=== PATIENT | male | born 1945 | race Two or more races ===

== ENCOUNTER 2018-12-09 07:39 | Outpatient (CLI) | payer OTHER | END 2018-12-09 07:48 | disposition home or self-care (01) | LOC: RAD 07:39 | DX: R53.81 Other malaise (principal); J20.8 Acute bronchitis due to other specified organisms; R05 Cough ==

== ENCOUNTER 2019-06-02 07:45 | Outpatient (CLI) | payer OTHER | END 2019-06-02 07:47 | disposition home or self-care (01) | LOC: TOM 07:45 | DX: I10 Essential (primary) hypertension (principal); R05 Cough ==

== ENCOUNTER → 2019-09-29 | Outpatient (CLI) | payer OTHER | END | disposition home or self-care (01) | LOC: SONOGRAMA 09:22 | DX: I10 Essential (primary) hypertension (principal) ==

== ENCOUNTER 2019-10-20 04:55 | Day surgery (SDC) | payer OTHER ==
[~2019-10-20 04:55] MED LIST: COZAAR50 MG PO
== END 2019-10-20 09:51 | disposition home or self-care (01) ==
LOC: CIR.AMB 04:55
DX: L72.0 Epidermal cyst (principal)

== ENCOUNTER 2020-05-16 08:04 | Outpatient (CLI) | payer OTHER | END 2020-05-16 08:06 | disposition home or self-care (01) | LOC: SONOGRAMA 08:04 | PROVIDERS: ATTEND Internal Medicine Gastroenterology | DX: R10.84 Generalized abdominal pain (principal) ==

== ENCOUNTER → 2020-10-06 08:46 | Outpatient (CLI) | payer OTHER | END | disposition home or self-care (01) | LOC: LAB 08:46 | PROVIDERS: ATTEND Radiology Diagnostic Radiology | DX: N20.0 Calculus of kidney (principal) ==

== ENCOUNTER 2020-10-10 07:59 | Outpatient (CLI) | payer OTHER | END 2020-10-10 08:22 | disposition home or self-care (01) | LOC: TOM 07:59 | PROVIDERS: ATTEND Urology | DX: K57.90 Diverticulosis of intestine, part unspecified, without perforation or abscess without bleeding (principal); R31.0 Gross hematuria ==

== ENCOUNTER → 2020-12-10 07:35 | Outpatient (CLI) | payer OTHER | END | disposition home or self-care (01) | LOC: RAD 07:35 | PROVIDERS: ATTEND General Practice | DX: M79.672 Pain in left foot (principal); R22.9 Localized swelling, mass and lump, unspecified ==

== ENCOUNTER 2021-08-28 11:07 | Inpatient (IN) | payer OTHER ==
[~2021-08-28] VITALS: Ht 162.6 cm; Wt 72.6 kg
--- NOTE | 2021-08-28 11:47 | NUR ---
SE RECIBE PTE ALERTA Y ORIENTADO X3,REFIERE TENER SANGRADO EN LA ORINA INTERMITENTE ,FUE REFERIDO POR ANEMIA POR LA DRA.SARA ZAMBRANO.
== END 2021-09-01 09:31 | disposition home or self-care (01) | DRG 700 ==
LOC: ER 11:07 → MEDJ 08-29 01:19
PROVIDERS: Urology; ADMIT Specialist/Technologist, Other Nephrology; ATTEND Specialist/Technologist, Other Nephrology
PROC: 30233N1 Transfusion of Nonautologous Red Blood Cells into Peripheral Vein, Percutaneous Approach (ICD-10-PCS; 2021-08-28)
PROC: 0TCB8ZZ Extirpation of Matter from Bladder, Via Natural or Artificial Opening Endoscopic (ICD-10-PCS; 2021-08-30)
PROC: 0T7D8ZZ Dilation of Urethra, Via Natural or Artificial Opening Endoscopic (ICD-10-PCS; principal; 2021-08-30 14:00)
DX: N30.41 Irradiation cystitis with hematuria (principal); R31.0 Gross hematuria; D64.9 Anemia, unspecified; I10 Essential (primary) hypertension; Z20.822 Contact with and (suspected) exposure to COVID-19; N32.89 Other specified disorders of bladder

== ENCOUNTER 2023-03-21 07:31 | Outpatient (CLI) | payer OTHER | END 2023-03-21 07:33 | disposition home or self-care (01) | LOC: NUCLEAR 07:31 | PROVIDERS: ATTEND Internal Medicine Pulmonary Disease | DX: R91.1 Solitary pulmonary nodule (principal); Z77.22 Contact with and (suspected) exposure to environmental tobacco smoke (acute) (chronic) | CPT/HCPCS: 78816; A9552 ==

== ENCOUNTER 2025-02-02 05:13 | Emergency (ER) | payer OTHER ==
[~2025-02-02] VITALS: Ht 177.8 cm; Wt 68.0 kg
[2025-02-02] MEDS ORDERED: 0.9 % SODIUM CHLORIDE 1,000 ML IV STA (05:42)
[2025-02-02 07:15] LABS: INR 1.13; PARTIAL THROMBOPLASTIN TIME 23.6 SECONDS (22.0-34.0); PROTHROMBIN TIME 12.2 SECONDS (9.0-11.5)
[2025-02-02 07:21] LABS: ALBUMIN 3.5 gm/dL (3.4-5.0); BILIRUBIN TOTAL 0.48 mg/dL (0.3-1.2); CALCIUM 8.5 mg/dL (8.5-10.1); CREATININE SERUM 1.19 mg/dL (0.70-1.30); GFR 59.12; GLOBULINA 3.3 G/DL (2.4-3.5); POTASSIUM 3.57 mEq/L (3.5-5.1); PROSTATIC SPECIFIC ANTIGEN 0.322 NG/ML (0.010-4.00); TOTAL PROTEIN 6.8 gm/dL (6.4-8.2)
[2025-02-02 08:17] LABS: ERYTHROCYTE SEDIMENTATION RATE 7 mm/hr (0-20)
[2025-02-02 08:21] LABS: BASO % 0.3 % (0.1-1.2); EOS % 0.1 % (0.7-7.0); HEMATOCRIT 34.4 % (40.1-51.0); LYMPH % 9.3 % (19.3-53.1); MEAN CORPUSCULAR HEMOGLOBIN 29.3 pg (25.6-32.2); NEUT % 79.9 % (34.0-71.1); PLATELET COUNT 146 K/uL (163-369); RED BLOOD COUNT 3.76 M/uL (4.63-6.08); RED CELL DISTRIBUTION WIDTH 14.6 % (11.6-14.4)
[2025-02-02 08:22] LABS: EOS # 0.01 (0.04-0.54); MONO # 1.18 (0.24-0.82); NEUT # 9.47 (1.56-6.13)
[2025-02-02 09:02] LABS: COVID-19 AG NEGATIVE (NEGATIVE); INFLUENZA A AG NEGATIVE (NEGATIVE)
[2025-02-02] MEDS ORDERED: PROTONIX40 MG PO (09:40)
[2025-02-02] MEDS ORDERED: METRONIDAZOLE500 MG PO (09:40)
[2025-02-02] MEDS ORDERED: CIPRO500 MG PO (09:40)
[2025-02-02] MEDS ORDERED: PROBIOTIC1 EAC2 PO (09:40)
[2025-02-02] MEDS ORDERED: LEVSIN/SL0.125 MG SL (09:40)
== END 2025-02-02 09:55 | disposition home or self-care (01) ==
LOC: ER 05:13
DX: K62.5 Hemorrhage of anus and rectum (principal); Z20.822 Contact with and (suspected) exposure to COVID-19
CPT/HCPCS: 36415; 74176; 96365; 96366; 99284; J7030

== ENCOUNTER 2025-02-06 06:59 | Inpatient (IN) | payer OTHER ==
[2025-02-06] VITALS (9 sets, daily range): BP systolic 126–163; BP diastolic 65–76; O2SAT 98–100
[~2025-02-06] VITALS: Ht 175.3 cm; Wt 68.0 kg
[~2025-02-06 06:59] MED LIST changes: +CIPRO500 MG PO; +LEVSIN/SL0.125 MG SL; +METRONIDAZOLE500 MG PO; +PROBIOTIC1 EAC2 PO; +PROTONIX40 MG PO
[2025-02-06] MEDS ORDERED: DILTIAZEM HCL 25 MG/5 ML VIAL IV ONE (07:28)
[2025-02-06] MEDS ORDERED: DILTIAZEM HCL 25 MG/5 ML VIAL IV STA (07:34)
[2025-02-06] MEDS ORDERED: 0.9 % SODIUM CHLORIDE 1,000 ML IV STA (07:34)
[2025-02-06] MEDS ORDERED: DILTIAZEM HCL 50 MG/10 ML VIAL IV STA (07:51)
[2025-02-06 08:12] LABS: ABG PH 7.482 (7.35-7.45); ABG PO2 80.3 mmHg (80-100); ABG pCO2 32.8 mmHg (35-45); BASE EXCESS 1.2 mmol/l; SaO2 96.7 %; allen test SATISFACTORY; mode ROOM AIR; o2 21 %; puncture site RADIAL RIGHT
[2025-02-06 08:36] LABS: BASO % 0.2 % (0.1-1.2); EOS # 0.01 (0.04-0.54); EOS % 0.2 % (0.7-7.0); HEMATOCRIT 30.6 % (40.1-51.0); HEMOGLOBIN 10.1 g/dL (13.7-17.5); LYMPH # 0.76 (1.18-3.74); LYMPH % 13.6 % (19.3-53.1); MEAN CORPUSCULAR HEMOGLOBIN 29.7 pg (25.6-32.2); MONO # 0.64 (0.24-0.82); MONO % 11.5 % (4.7-12.5); NEUT # 4.14 (1.56-6.13); NEUT % 74.1 % (34.0-71.1); PLATELET COUNT 150 K/uL (163-369); RED CELL DISTRIBUTION WIDTH 14.8 % (11.6-14.4)
[2025-02-06 09:03] LABS: ALBUMIN 3.4 gm/dL (3.4-5.0); BILIRUBIN TOTAL 0.94 mg/dL (0.3-1.2); CREATININE SERUM 1.25 mg/dL (0.70-1.30); GFR 55.86; GLOBULINA 3.6 G/DL (2.4-3.5); POTASSIUM 3.69 mEq/L (3.5-5.1)
[2025-02-06] MEDS ORDERED: DILTIAZEM HCL 125 MG in 0.9 % SODIUM CHLORIDE 125 ML IV SCH (12:30)
[2025-02-06] MEDS ORDERED: ATORVASTATIN CALCIUM 40 MG TABLET PO SCH (18:23)
[2025-02-06] MEDS ORDERED: 0.9 % SODIUM CHLORIDE 1,000 ML IV SCH (18:30)
[2025-02-06] MEDS ORDERED: ACETAMINOPHEN 500 MG GEL..CAP PO PRN (18:30)
[2025-02-06 19:30] LABS: D DIMER 1.55 MG/L; INR 1.22; PARTIAL THROMBOPLASTIN TIME 31.3 SECONDS (22.0-34.0); PROTHROMBIN TIME 13.1 SECONDS (9.0-11.5)
[2025-02-06 19:58] LABS: MAGNESIUM 1.7 mg/dL (1.8-2.4); PHOSPHOROUS 2.4 mg/dL (2.5-4.9)
[2025-02-06 20:21] LABS: COVID-19 AG NEGATIVE (NEGATIVE)
[2025-02-07] VITALS (15 sets, daily range): BP systolic 131–169; BP diastolic 68–87; O2SAT 94–100
[2025-02-07 04:00] LABS: ob POSITIVE (NEGATIVE)
[2025-02-07] MEDS ORDERED: AMIODARONE HCL 900 MG in DEXTROSE 5 % IN WATER 500 ML IV SCH (08:15)
[2025-02-07 08:32] LABS: CHOL HDL RATIO 2.1 (0-5.0); TSH 0.629 uIU/mL (0.358-3.74)
[2025-02-07 08:40] LABS: BASO % 1.1 % (0.1-1.2); EOS # 0.03 (0.04-0.54); EOS % 0.8 % (0.7-7.0); HEMATOCRIT 27.3 % (40.1-51.0); LYMPH # 0.75 (1.18-3.74); LYMPH % 19.8 % (19.3-53.1); MEAN CORPUSCULAR HEMOGLOBIN 29.9 pg (25.6-32.2); MONO # 0.51 (0.24-0.82); NEUT # 2.44 (1.56-6.13); NEUT % 64.5 % (34.0-71.1); PLATELET COUNT 156 K/uL (163-369); RED BLOOD COUNT 2.98 M/uL (4.63-6.08)
[2025-02-07 08:57] LABS: MONO % 13.5 % (4.7-12.5)
[2025-02-07] MEDS ORDERED: FAMOTIDINE/PF 20 MG in 0.9 % SODIUM CHLORIDE 8 ML IV PUSH SCH (09:00)
[2025-02-07] MEDS ORDERED: LOSARTAN POTASSIUM 25 MG TABLET PO SCH (09:00)
[2025-02-07] MEDS ORDERED: METOPROLOL SUCCINATE 50 MG TAB.SR.24H PO SCH (10:12)
[2025-02-07 10:32] LABS: HEMOGLOBIN 8.9 g/dL (13.7-17.5)
[2025-02-07] MEDS ORDERED: PANTOPRAZOLE SODIUM 40 MG/VIAL VIAL IV PUSH SCH (11:00)
[2025-02-07 12:40] LABS: FERRITIN 86.7 NG/ML (26-388)
[2025-02-07 13:55] LABS: FOLIC ACID > 20.00 ng/ml (4.78-20)
[2025-02-08] VITALS (13 sets, daily range): BP systolic 110–156; BP diastolic 65–82; O2SAT 90–100
[2025-02-08] MEDS ORDERED: FUROsemide 20 MG/2 ML VIAL IV PRN (08:30)
[2025-02-08] MEDS ORDERED: Cyanocobalamin/Mecobalamin 1 TAB.SL SL SCH (09:00)
[2025-02-08] MEDS ORDERED: AMIODARONE HCL 200 MG TABLET PO SCH (09:00)
[2025-02-08] MEDS ORDERED: LOSARTAN POTASSIUM 50 MG TABLET PO SCH (09:00)
[2025-02-08] MEDS ORDERED: SOD FERRIC GLUC COMPLX/SUCROSE 62.5 MG in 0.9 % SODIUM CHLORIDE 50 ML IV SCH (09:00)
[2025-02-09] VITALS (8 sets, daily range): BP systolic 131–155; BP diastolic 75–80; O2SAT 89–99
[2025-02-09 12:30] LABS: BASO % 0.5 % (0.1-1.2); EOS # 0.04 (0.04-0.54); EOS % 0.5 % (0.7-7.0); HEMOGLOBIN 12.9 g/dL (13.7-17.5); LYMPH # 1.01 (1.18-3.74); LYMPH % 13.6 % (19.3-53.1); MONO # 0.89 (0.24-0.82); NEUT # 5.43 (1.56-6.13); NEUT % 73.1 % (34.0-71.1); PLATELET COUNT 141 K/uL (163-369); RED BLOOD COUNT 4.45 M/uL (4.63-6.08); RED CELL DISTRIBUTION WIDTH 15.4 % (11.6-14.4)
[2025-02-10] VITALS (10 sets, daily range): BP systolic 124–145; BP diastolic 69–90; O2SAT 94–99
[2025-02-10 15:44] LABS: INR 1.18; PARTIAL THROMBOPLASTIN TIME 32.5 SECONDS (22.0-34.0); PROTHROMBIN TIME 12.7 SECONDS (9.0-11.5)
[2025-02-10 16:03] LABS: BILIRUBIN TOTAL 0.96 mg/dL (0.3-1.2); CALCIUM 8.9 mg/dL (8.5-10.1); CREATININE SERUM 1.03 mg/dL (0.70-1.30); GFR 69.84; GLOBULINA 3.3 G/DL (2.4-3.5); POTASSIUM 4.02 mEq/L (3.5-5.1); TOTAL PROTEIN 6.3 gm/dL (6.4-8.2)
[2025-02-11 00:26] VITALS: O2SAT 98
[2025-02-11 01:32] VITALS: BP 124/66
[2025-02-11 03:51] VITALS: O2SAT 97
[2025-02-11 07:30] VITALS: BP 133/75; O2SAT 99
[2025-02-11] MEDS ORDERED: SOD FERRIC GLUC COMPLX/SUCROSE 62.5 MG/5 ML AMPUL IV ONE (08:39)
[2025-02-11 09:00] VITALS: O2SAT 96
[2025-02-11] MEDS ORDERED: AMIODARONE HCL200 MG PO (12:10)
[2025-02-11] MEDS ORDERED: LIPITOR40 M1 PO (12:10)
[2025-02-11] MEDS ORDERED: TOPROL XL50 M1 PO (12:11)
[2025-02-11] MEDS ORDERED: COZAAR50 MG PO (12:11)
[2025-02-11] MEDS ORDERED: ELIQUIS5 MG PO (12:15)
[2025-02-11 13:17] VITALS: O2SAT 98
[2025-02-12] MEDS ORDERED: COZAAR50 MG PO (08:52)
[2025-02-12] MEDS ORDERED: AMIODARONE HCL200 MG PO (08:52)
[2025-02-12] MEDS ORDERED: ATORVASTATIN CA80 MG PO (08:52)
[2025-02-12] MEDS ORDERED: TOPROL XL50 M1 PO (08:52)
[2025-02-12] MEDS ORDERED: ELIQUIS5 MG PO (08:52)
== END 2025-02-11 13:23 | disposition home or self-care (01) | DRG 281 ==
LOC: ER 07:06 → ICU-2 18:56 → MEDI 02-08 13:39
PROVIDERS: General Practice; ADMIT Internal Medicine; ATTEND Internal Medicine
PROC: B24BZZZ Ultrasonography of Heart with Aorta (ICD-10-PCS; 2025-02-06)
PROC: BW24YZZ Computerized Tomography (CT Scan) of Chest and Abdomen using Other Contrast (ICD-10-PCS; 2025-02-07)
PROC: 4A12X4Z Monitoring of Cardiac Electrical Activity, External Approach (ICD-10-PCS; principal; 2025-02-08)
PROC: 30233N1 Transfusion of Nonautologous Red Blood Cells into Peripheral Vein, Percutaneous Approach (ICD-10-PCS; 2025-02-08)
DX: I48.20 Chronic atrial fibrillation, unspecified (principal); D62 Acute posthemorrhagic anemia; I21.A1 Myocardial infarction type 2; K92.2 Gastrointestinal hemorrhage, unspecified; N17.9 Acute kidney failure, unspecified; I71.21 Aneurysm of the ascending aorta, without rupture; I35.1 Nonrheumatic aortic (valve) insufficiency; I07.1 Rheumatic tricuspid insufficiency; D69.6 Thrombocytopenia, unspecified; K62.89 Other specified diseases of anus and rectum; I11.9 Hypertensive heart disease without heart failure

== ENCOUNTER 2025-05-05 07:10 | Outpatient (CLI) | payer OTHER ==
[~2025-05-05 07:10] MED LIST changes: +AMIODARONE HCL200 MG PO; +ATORVASTATIN CA80 MG PO; +ELIQUIS5 MG PO; +LIPITOR40 M1 PO; +TOPROL XL50 M1 PO
== END 2025-05-05 07:13 | disposition home or self-care (01) ==
LOC: TOM 07:10
PROVIDERS: ATTEND Internal Medicine Gastroenterology
DX: K92.1 Melena (principal)

== ENCOUNTER 2025-06-17 07:08 | Emergency (ER) | payer OTHER ==
[~2025-06-17] VITALS: Ht 177.8 cm; Wt 63.5 kg
[2025-06-17 07:28] VITALS: BP 157/78; O2SAT 99
[2025-06-17] MEDS ORDERED: LOSARTAN POTASS50 MG PO (07:29)
[2025-06-17] MEDS ORDERED: ELIQUIS2.5 MG PO (07:29)
[2025-06-17] MEDS ORDERED: PEPCID AC20 MG PO ×2 (07:30→10:48)
[2025-06-17] MEDS ORDERED: LIPITOR40 M1 PO (07:30)
[2025-06-17] MEDS ORDERED: ORPHENADRINE CITRATE 30 MG/ML AMPUL IM ONE (09:00)
[2025-06-17] MEDS ORDERED: ACETAMINOPHEN 500 MG GEL..CAP PO ONE ×2 (09:00→09:27)
[2025-06-17] MEDS ORDERED: DEXAMETHASONE SODIUM PHOSPHATE 4 MG/ML VIAL IM ONE (09:00)
[2025-06-17] MEDS ORDERED: KETOROLAC TROMETHAMINE 60 MG VIAL IM ONE ×2 (09:00→09:26)
[2025-06-17] MEDS ORDERED: ORPHENADRINE CITRATE 30 MG/ML AMPUL ONE (09:26)
[2025-06-17] MEDS ORDERED: DEXAMETHASONE SODIUM PHOSPHATE 4 MG/ML VIAL ONE (09:27)
[2025-06-17] MEDS ORDERED: MOBIC7.5 MG PO (10:48)
[2025-06-17] MEDS ORDERED: NORFLEX100MG PO (10:48)
== END 2025-06-17 11:09 | disposition home or self-care (01) ==
LOC: ER 07:09
DX: M70.51 Other bursitis of knee, right knee (principal); I10 Essential (primary) hypertension; I48.91 Unspecified atrial fibrillation; M19.90 Unspecified osteoarthritis, unspecified site
CPT/HCPCS: 73560; 96372; 99283; J1100; J1885; J2360